=== PATIENT | female | born 1950 | race Caucasian/White ===

== ENCOUNTER → 2020-07-19 | Outpatient (CLI) | payer OTHER ==
[~2020-07-19] MED LIST: AMBIEN 5 MG TABL5 M1 PO; BENADRYL25 MG PO; CALCIUM 500+D1 EAC2 PO; CRESTOR5 MG PO; HYDROCODON-ACE1 EAC7 PO; PRILOSEC 20 MG20 MG PO; PRISTIQ50 M1 PO; SUDAFED 12 HOU120 MG PO; VITAMINC500 PO; ZIAC 10-6.25 M1 EACH PO; [UNRECOGNIZED DRUG - OTHER] PO
== END ==
LOC: M.LAB 05:39
PROVIDERS: ATTEND Anesthesiology
DX: E87.6 Hypokalemia (principal)

== ENCOUNTER → 2020-08-30 | Outpatient (CLI) | payer MEDICARE ==
[2020-08-30 11:28] LABS: ALBUMIN 3.3 g/dL (3.4-5.0); CALCIUM 9.2 mg/dL (8.5-10.1); CREATININE 1.2 mg/dL (0.6-1.3); POTASSIUM 4.8 mmol/L (3.5-5.1); TOTAL BILIRUBIN 0.3 mg/dL (<0.1-1.0); TOTAL PROTEIN 7.7 g/dL (6.4-8.2)
== END ==
LOC: M.ULTRA 08-29 10:30
PROVIDERS: ATTEND Internal Medicine Gastroenterology
DX: K76.0 Fatty (change of) liver, not elsewhere classified (principal); R79.89 Other specified abnormal findings of blood chemistry